=== PATIENT | male | born 1985 | race Caucasian/White ===

== ENCOUNTER → 2024-02-20 | Outpatient (CLI) | payer BC ==
[2024-02-20 14:57] LABS: Basophils # (A) 0.06 X 10*3/uL (0.00-0.10); Eosinophils # (A) 0.21 X 10*3/uL (0.04-0.35); Eosinophils % (A) 3.4 %; HCT 47.7 % (39.6-50.0); HGB 16.2 g/dL (13.0-17.0); Lymphocytes # (A) 1.91 X 10*3/uL (0.90-5.00); Lymphocytes % (A) 31.3 %; MCH 30.5 pg (27.0-32.0); MCV 89.8 FL (80.0-97.0); Mean Platelet Volume 10.1 FL (9.5-12.2); Monocytes # (A) 0.68 X 10*3/uL (0.20-1.00); Monocytes % (A) 11.1 %; NRBC Per 100 WBC 0 X 10*3/uL (0.00-0.01); Neutrophils # (A) 3.24 X 10*3/uL (1.80-7.70); Platelet Count 312 X 10*3/uL (140-440); RBC 5.31 X 10*6/uL (4.40-5.60); RDW 12.2 % (11.5-14.5); WBC 6.11 X 10*3/uL (4.50-10.00)
[2024-02-20 15:25] LABS: % Iron Saturation 37.34 (15.00-50.00); ALT 88 U/L (10-49); AST 43 U/L (14-35); Albumin 4.5 g/dL (3.8-4.9); Albumin/Globulin Ratio 1.61 Ratio (1.60-3.17); Alkaline Phosphatase 87 U/L (41-126); Blood Urea Nitrogen 13.4 mg/dL (9.0-27.0); Calcium 10.5 mg/dL (8.7-10.3); Carbon Dioxide 25.2 mmol/L (21.6-31.8); Chloride 104 mmol/L (96-109); Globulin 2.8 g/dL (1.6-3.3); Glucose 108 mg/dL (70-110); Iron 118 UG/DL (65-175); Potassium 4.5 mmol/L (3.5-5.5); Sodium 139 mmol/L (135-145); Total Bilirubin 0.8 mg/dL (0.3-1.2); Total Iron Binding Capacity 316 UG/DL (228-460); Total Protein 7.3 g/dL (6.2-8.2)
[2024-02-20 15:36] LABS: Protein, Total 7.1 g/dL (6.2-8.2)
[2024-02-20 16:07] LABS: Hepatitis B Surface Antigen Nonreactive (Nonreactive); Hepatitis C IgG Antibody Nonreactive (Nonreactive)
[2024-02-20 16:19] LABS: Ceruloplasmin 20.6 mg/dL (20.0-60.0)
[2024-02-21 10:15] LABS: Smooth Muscle Antibody 26 UNITS (<20)
== END | disposition home or self-care (01) ==
LOC: LABWHC1 10:33
PROVIDERS: ATTEND Internal Medicine Gastroenterology
DX: R74.8 Abnormal levels of other serum enzymes (principal)
CPT/HCPCS: 36415; 80053; 81596; 82103; 82390; 82728; 83516; 83540; 83550; 84165; 85025; 86038; 86803; 87340

== ENCOUNTER → 2024-03-02 | Outpatient (CLI) | payer BC ==
--- NOTE | 2024-03-02 12:56 | US ---
EXAMINATION TYPE: US abdomen complete DATE OF EXAM: 03/02/2024 COMPARISON: NONE CLINICAL INDICATION: Male, 38 years old with history of R74.8ABNORMAL LEVELS OF OTHER SERUM ENZYMES; Patient denies any other signs, symptoms, or relevant history TECHNIQUE: Grayscale and color Doppler imaging of the abdomen was performed. FINDINGS: EXAM MEASUREMENTS: Liver Length: 17.4 cm Gallbladder Wall: 0.2 cm CBD: 0.4 cm, color Doppler imaging was utilized to isolate the common bile duct for measurement. Right Kidney: 9.9 x 6.3 x 5.1 cm [employer] SUBSTATION NOTES: Pancreas: wnl Liver: Increased echotexture to liver, no dilated ducts, masses or cysts., Focal fatty sparing in the gallbladder fossa. Gallbladder: wnl Evidence for sonographic Anderson's sign: No CBD: wnl Right Kidney: wnl Upper IVC: wnl Abd Aorta: wnl The liver is homogenous. The intrahepatic portion of the IVC and proximal abdominal aorta are within normal limits. There is no evidence of cholelithiasis. Common bile duct is unremarkable. The visu alized portions of the pancreas are homogenous. IMPRESSION: Hepatic steatosis with focal fatty sparing. [facility], , 03/02/2024 12:53 PM
== END | disposition home or self-care (01) ==
LOC: RADUSWWP 07:34
PROVIDERS: ATTEND Internal Medicine Gastroenterology
DX: K76.0 Fatty (change of) liver, not elsewhere classified (principal); R74.8 Abnormal levels of other serum enzymes
CPT/HCPCS: 76705

== ENCOUNTER → 2024-07-20 | Outpatient (CLI) | payer BC ==
--- NOTE | 2024-07-20 10:00 | CT ---
EXAMINATION TYPE: CT sinus wo con DATE OF EXAM: 07/20/2024 9:25 AM COMPARISON: 06/10/2009.. CLINICAL INDICATION: Male, 39 years old with history of J32.0 CHRONIC MAXILLARY SINUSITIS; , CHRONIC MAXILLARY SINUSITIS. EVAL MAXILLARY FLOOR TO TEETH, PT IN PROCESS OF GETTING POST PLACEMENT TECHNIQUE: Multiple thin axial images were obtained through the paranasal sinuses. Additional coronal and sagittal reformatted images were submitted for evaluation. Contrast used: none Oral contrast used: none CT DLP: 504.0 mGycm, Automated exposure control for dose reduction was used. FINDINGS: Frontal sinuses: Normally developed with scattered mild mucosal thickening. Frontal Recess: Clear Maxillary Sinuses: Retention cyst in the left maxillary sinus measuring up to 26 x 18 mm along the fl oor. The densest in the right maxillary sinus along the roof of the sinus measuring 10 mm. Otherwise, Normally developed with scattered mild mucosal thickening. Maxillary Infundibula([facility]): clear, No Vanessa cells identified. Ethmoid sinuses: Normally developed and aerated. Ethmoidal notch: Protected and abutting the lateral lamina. Sphenoid sinuses: Normally developed and aerated. There is sellar sphenoid sinus pneumatization with out evidence of dehiscence. No dehiscence of carotid canal. No evidence of optic nerve dehiscence wi thin the sphenoid sinus. No evidence of Onodi cells. Sphenoethmoidal recesses: Clear. Nasal septum: Within normal limits. slight deviation rightward. Nasal Turbinates: Mild mucosal thickening bilaterally of the anterior and middle turbinates. Mastoid air cells & middle ears: The air cells are clear. The middle ears are grossly unremarkable. Modified Soft tissues & Brain: Partially seen without gross abnormality. Globes are intact. Other: Cribriform plate demonstrates symmetric Keros classification type 2 cribriform plate. No evidence of bony dehiscence of skull base. Lamina papyracea is intact without evidence of remote orbital fracture or orbital prolapse into the e thmoid sinus. Multiple teeth roots are less than 1 mm touch from the floor the maxillary sinuses bilaterally. Examp les include On the right the roots of the second bicuspid protrudes into the maxillary sinus minimall y. Additionally the roots of the first and second molar are also very close to the floor of the maxil [place] sinus. On the left the what is thought to be the second bicuspid touches the floor of the maxill johan sinus. The first molar on the left upper maxilla is surgically absent. IMPRESSION: 1. Multiple teeth roots are less than 0-1 mm away from the floor the maxillary sinuses bilaterally. 2. The ostiomeatal units, frontonasal and sphenoethmoidal recesses are clear. 3. Retention cysts in the bilateral maxillary sinuses. [facility], , 07/20/2024 9:57 AM
== END | disposition home or self-care (01) ==
LOC: RADCTMAIN 08:50
PROVIDERS: ATTEND Otolaryngology
DX: J32.0 Chronic maxillary sinusitis (principal); J34.1 Cyst and mucocele of nose and nasal sinus
CPT/HCPCS: 70486